=== PATIENT | male | born 1945 | race Caucasian/White ===

== ENCOUNTER 2017-01-27 13:30 | Outpatient (RCR) | payer OTHER | END 2017-02-11 | disposition home or self-care (01) | LOC: PTY 13:30 | DX: M17.12 Unilateral primary osteoarthritis, left knee (principal) ==

== ENCOUNTER 2017-05-16 14:50 | Outpatient (RCR) | payer OTHER | END 2017-06-13 | disposition home or self-care (01) | LOC: PTY 14:50 | DX: M17.0 Bilateral primary osteoarthritis of knee (principal) | CPT/HCPCS: 97110; 97140; G0283 ==

== ENCOUNTER 2017-07-11 10:48 | Outpatient (RCR) | payer OTHER | END 2017-07-14 | disposition home or self-care (01) | LOC: PTY 10:48 | DX: M17.11 Unilateral primary osteoarthritis, right knee (principal); Z96.652 Presence of left artificial knee joint | CPT/HCPCS: 97110; 97140; G0283 ==

== ENCOUNTER 2017-07-20 14:00 | Outpatient (RCR) | payer OTHER | END 2017-08-13 | disposition home or self-care (01) | LOC: PTY 14:00 | PROVIDERS: ATTEND Internal Medicine | DX: M17.11 Unilateral primary osteoarthritis, right knee (principal) | CPT/HCPCS: 97110; 97140; G0283 ==